=== PATIENT | male | born 1980 | race Hispanic/Latino ===

== ENCOUNTER 2020-05-29 16:45 | Emergency (ER) | payer OTHER ==
[2020-05-29 17:40] LABS: BASOPHILS % (AUTO) 0.4 % (0.0-5.0); EOSINOPHILS % (AUTO) 1.4 % (0.0-8.0); HEMATOCRIT 47.4 % (42-54); LYMPHOCYTES % (AUTO) 7.8 % (21.0-51.0); MEAN CORPUSCULAR HEMOGLOBIN 31.8 pg (27.0-33.0); MEAN CORPUSCULAR HGB CONC 36.1 g/dL (32.0-36.0); MEAN CORPUSCULAR VOLUME 88.1 fL (79-99); MONOCYTES % (AUTO) 14.9 % (3.0-13.0); NEUTROPHILS % (AUTO) 75.2 % (40.0-77.0); PLATELET COUNT (AUTO) 157 K/uL (130-400); RED BLOOD CELL COUNT(AUTO) 5.38 MIL/uL (4.50-6.20); RED CELL DISTRIBUTION WIDTH 14.4 % (11.0-15.5); WHITE BLOOD COUNT (AUTO) 10.5 K/uL (4.8-10.8)
[2020-05-29] MEDS ORDERED: MORPHINE SULFATE 2 MG/ML 1ML SYG ONE (17:40)
[2020-05-29 17:48] LABS: INR 1.29 (0.85-1.15); PARTIAL THROMBOPLASTIN TIME 28.9 SEC (26.3-35.5); PROTHROMBIN TIME 13.8 SEC (9.6-11.6)
[2020-05-29 17:50] LABS: POTASSIUM 3.5 mmol/L (3.5-5.1)
[2020-05-29 17:54] LABS: ALBUMIN 2.7 g/dL (3.5-5.0); TOTAL PROTEIN, SERUM 7.9 g/dL (6.0-8.3)
[2020-05-29] MEDS ORDERED: LEVOFLOXACIN 750 MG/D5W 150 ML 150 ML ONE (18:05)
== END 2020-05-29 19:18 | disposition home or self-care (01) ==
LOC: EDH 16:45
DX: A08.39 Other viral enteritis (principal); K65.2 Spontaneous bacterial peritonitis; I10 Essential (primary) hypertension; Z87.891 Personal history of nicotine dependence
CPT/HCPCS: 36415; 80053; 85025; 85610; 85730; 96365; 96375; 99284; J1956

== ENCOUNTER 2024-09-09 17:22 | Emergency (ER) | payer OTHER ==
[~2024-09-09] VITALS: Ht 185.4 cm; Wt 116.1 kg
--- NOTE | 2024-09-09 17:42 | ERN ---
ED Note History of Present Illness Stated Complaint: ABNORMAL LABS Chief Complaint: Abnormal Labs Time Seen by MD: 17:25 Dictation: PATIENT IS A 44-YEAR-OLD HERE WITH COMPLAINTS BEING SENT BY THE [employer] FOR LOW PLATELETS. HE STATES HE HAS HAD HEMATURIA HOWEVER NO RECTAL BLEEDING NO MELENA STOOLS NO HEMATEMESIS. ADDITIONALLY STATES HE HAD ANTERIOR CHEST PAIN THAT DOES NOT RADIATE YESTERDAY AND WAS TOO ILL TO GO TO THE HOSPITAL ON-CALL. HE STATES HE HAS BEEN TO A MONITOR TECHNICIAN IN [facility] HOWEVER CAN NOT RECALL THE NAME. Allergies: Coded Allergies: No Known Drug Intolerances (Unverified Allergy, Unknown, 09/09/24) Home Meds Active Scripts Metformin HCl (Metformin HCl) 1,000 Mg Tablet, 1000 MG PO BID, #60 TAB Prov:NELL JARA ELECTROPHYSIOLOGY NURSE PRACTITIONER 09/09/24 Reported Medications Cholecalciferol (Vitamin D3) (Vitamin D-400) 10 Mcg (400 Unit) Tablet, 1 TAB PO DAILY for 30 Days, #30 TAB 0 Refills 09/09/24 Multivitamin (Multi Vitamin Daily) 1 Each Tablet, 1 TAB PO DAILY for 30 Days, #30 TAB 0 Refills 09/09/24 Thiamine HCl (Vitamin B-1) 100 Mg Tablet, 1 TAB PO DAILY for 30 Days, #30 TAB 0 Refills 09/09/24 Folic Acid (Folic Acid) 0.4 Mg Tablet, 1 TAB PO DAILY for 30 Days, #30 TAB 0 Refills 09/09/24 Past Medical History Past Medical History: Gallstones, Liver Disease Surgical History: Other Surgical History Other: NASAL SX RN Note Reviewed/Agreed w/PFSH: Yes Review of System Dictation CONSTITUTIONAL: NEGATIVE EXCEPT FOR HPI HEAD/FACE: NEGATIVE EXCEPT FOR HPI EENT: NEGATIVE EXCEPT FOR HPI RESPIRATORY: NEGATIVE EXCEPT FOR HPI CHEST PAIN GASTROINTESTINAL/ABDOMINAL: NEGATIVE EXCEPT FOR HPI GENITOURINARY: NEGATIVE EXCEPT FOR HPI HEMATURIA MUSCULOSKELETAL: NEGATIVE EXCEPT FOR HPI INTEGUMENTARY: NEGATIVE EXCEPT FOR HPI NEUROLOGICAL/PSYCH: NEGATIVE EXCEPT FOR HPI HEMATOLOGIC/LYMPHATIC: NEGATIVE EXCEPT FOR HPI ALL SYSTEMS NEGATIVE, EXCEPT NOTED ABOVE. 13 POINT REVIEW OF SYSTEMS ASSESSED AND ALL NEGATIVE EXCEPT FOR ABOVE. Initial Vital Sign VS Vital Signs Date Time Temp Pulse Resp B/P (MAP) Pulse Ox O2 Delivery O2 Flow Rate FiO2 09/09/24 17:24 99.0 107 18 148/95 96 Room Air 0 09/09/24 17:50 21 Physical Exam Dictation VITAL SIGNS REVIEWED GENERAL APPEARANCE: ALERT, ORIENTED X 3, NO ACUTE DISTRESS, WELL DEVELOPED, NOURISHED. HEAD AND FACE: NON-TRAUMATIC. EYES: PERRL, PINK CONJUNCTIVAS, EYELID NO TRAUMA, ANTERIOR CHAMBER WITH ARCUS SENILIS. ICTERIC SCLERA EARS: PINNAS INTACT AND NO SIGNS OF TRAUMA OR ERYTHEMA EAR CANALS CLEAR AND NO DISCHARGE TM NO ERYTHEMA NOSE: NO DISCHARGE, NO BLEEDING. OROPHARYNX: MOUTH NORMAL, TONGUE PINK, PHARYNX CLEAR,NO ERYTHEMA, TONSILS NO EXUDATES, NO ABSCESSES NOTED, MUCOUS MEMBRANE MOIST NECK: SUPPLE, NON-TENDER, NO THYROMEGALY, NO MASSES, NO JVD, NO BRUITS BREAST:DEFERRED CHEST:NO TENDERNESS, NO CREPITUS, NO PARADOXICAL MOVEMENT, NO RETRACTIONS LUNGS:CLEAR, WELL-VENTILATED, SYMMETRIC, NO RALES, NO WHEEZING, NO RHONCHI, NO STRIDOR, GOOD BREATH SOUNDS BILATERALLY HEART: REGULAR RATE, REGULAR RHYTHM, NO MURMUR, NO GALLOPS VASCULAR: NO PERIPHERAL EDEMA, ABDOMEN: SOFT, POSITIVE BOWEL SOUNDS, NONDISTENDED, NO GUARDING, NONTENDER, NO REBOUND, NO MASSES NO HEPATOMEGALY, NO SPLENOMEGALY, NO MICHELLE'S SIGN, NO HERNIAS. RECTAL: DEFERRED GENITAL: DEFERRED NEUROLOGICAL: NORMAL SPEECH, MOTOR FUNCTION INTACT, SENSORY FUNCTION INTACT MUSCULOSKELETAL: NECK NONTENDER, FULL RANGE OF MOTION, BACK NONTENDER, FULL RANGE OF MOTION, EXTREMITIES: NONTENDER, FULL RANGE OF MOTION SKIN: COLOR PINK, DRY, NO TURGOR, NO RASH, NO LACERATIONS, NO ABRASIONS, NO CONTUSIONS. LYMPHATIC: DEFERRED Results (Laboratory/Radiology) Laboratory/Radiology Laboratory Tests Test 09/09/24 17:50 09/09/24 18:20 White Blood Count 2.0 K/uL (4.8-10.8) L Red Blood Count 4.69 MIL/uL (4.50-6.20) Hemoglobin 15.3 g/dL (14.0-18.0) Hematocrit 42.5 % (42-54) Mean Corpuscular Volume 90.6 fL (79-99) Mean Corpuscular Hemoglobin 32.6 pg (27.0-33.0) Mean Corpuscular Hemoglobin Concent 36.0 g/dL (32.0-36.0) Red Cell Distribution Width 13.2 % (11.0-15.5) Platelet Count 37 K/uL (130-400) L Mean Platelet Volume 11.1 fL (7.5-10.5) H Immature Granulocyte % (Auto) 0.0 % (0-1) Neutrophils (%) (Auto) 66.5 % (40.0-77.0) Lymphocytes (%) (Auto) 15.8 % (21.0-51.0) L Monocytes (%) (Auto) 12.8 % (3.0-13.0) Eosinophils (%) (Auto) 3.9 % (0.0-8.0) Basophils (%) (Auto) 1.0 % (0.0-5.0) Neutrophils # (Auto) 1.4 K/uL (1.8-7.7) L Lymphocytes # (Auto) 0.3 K/uL (1.0-4.8) L Monocytes # (Auto) 0.3 K/uL (0.1-1.0) Eosinophils # (Auto) 0.08 K/uL (0.00-0.70) Basophils # (Auto) 0.02 K/uL (0.00-0.20) Absolute Immature Granulocyte (auto 0.00 K/uL (0-1) Nucleated Red Blood Cells 0.0 % (0.0-0.19) White Cell Morphology Comment See comments Platelet Morphology Comment See comments Prothrombin Time 14.8 SEC (9.6-11.6) H Prothromb Time International Ratio 1.45 (0.85-1.15) H Activated Partial Thromboplast Time 32.2 SEC (26.3-35.5) Sodium Level 131 mmol/L (136-145) L Potassium Level 3.7 mmol/L (3.5-5.1) Chloride Level 96 mmol/L (101-111) L Carbon Dioxide Level 31 mmol/L (21-32) Blood Urea Nitrogen 8 mg/dL (7-18) Creatinine 1.0 mg/dL (0.5-1.3) Glomerular Filtration Rate Calc 96 mL/min (>90) Random Glucose 234 mg/dL (70-105) H Total Calcium 8.3 mg/dL (8.5-10.1) L Total Bilirubin 4.0 mg/dL (0.2-1.0) H Direct Bilirubin 1.4 mg/dL (0.0-0.3) H Aspartate Amino Transf (AST/SGOT) 70 U/L (10-37) H Alanine Aminotransferase (ALT/SGPT) 45 U/L (12-78) Alkaline Phosphatase 121 U/L (50-136) Troponin I High Sensitivity 5 ng/L (4-75) Total Protein 7.8 g/dL (6.0-8.3) Albumin 2.5 g/dL (3.5-5.0) L Urine Color DARK-YELLOW (YELLOW) Urine Appearance CLEAR (CLEAR) Urine pH 6.0 (5.0-8.0) Urine Specific [place] 1.027 (1.001-1.031) Urine Protein 10 mg/dL (NEGATIVE) H Urine Glucose (UA) 300 mg/dL (NEGATIVE) H Urine Ketones NEGATIVE mg/dL (NEGATIVE) Urine Occult Blood NEGATIVE (NEGATIVE) Urine Nitrate NEGATIVE (NEGATIVE) Urine Bilirubin 0.5 mg/dL (NEGATIVE) H Urine Urobilinogen 12 mg/dL (0.2-1.0) H Urine Leukocyte Esterase NEGATIVE Ana/uL Urine RBC 0-1 /HPF (0-1) Urine WBC 0-1 /HPF (0-1) Urine Squamous Epithelial Cells RARE /HPF (0-2) Urine Bacteria None /HPF (None Seen) 2054/chest x-ray clear Labs Reviewed?: Yes EKG: (+) NSR EKG Comment: EKG NORMAL SINUS RHYTHM/HEART RATE 90/AXIS NORMAL/NO ECTOPY ED Course ED Course Orders Procedure Category Date Status Time Pt And Ptt LAB 09/09/24 Complete 17:38 Cbc With Differential LAB 09/09/24 Complete 17:38 Troponin I High LAB 09/09/24 Complete Sensitivity 17:38 Urinalysis Profile LAB 09/09/24 Complete 17:38 12 Lead Ekg Tracing- EKG 09/09/24 Complete Technical 17:38 Comprehensive LAB 09/09/24 Complete Metabolic Panel 17:42 Hepatic Function Panel LAB 09/09/24 Complete 17:42 Chest 1vw RAD 09/09/24 Resulted 19:01 Vital Signs Date Time Temp Pulse Resp B/P (MAP) Pulse Ox O2 Delivery O2 Flow Rate FiO2 09/09/24 21:33 97.5 85 18 120/66 98 Room Air* 0 21 09/09/24 19:29 97.7 85 18 127/64 98 Room Air* 0 21 09/09/24 17:50 97.7 87 18 169/96 98 Room Air* 0 21 09/09/24 17:24 99.0 107 18 148/95 96 Room Air 0 2120/spoke with patient at length are route clinical findings. He is aware that he has a new onset diabetic with a blood sugar of 234 last visit to [facility] was 2019 in his blood sugar was 136. He states doctors have asked him in the passive he is diabetic however has not ever diagnosed him with diabetes. I advised patient I would send him home on metformin 500 mg b.i.d. have him see his doctor for referral to Oncology Hematology. case discussed with Dr Gallagher and agreed with my plan of care HEART Score Response (Comments) Value EKG: Normal 0 Age: < 45yrs (0) 0 Risk Factors: 1-2 risk factors (+1) 1 Initial Troponin: Normal limit (0) 0 Total 1 Medical Decision Making MDM MDM: Differential diagnosis: Electrolyte imbalance/dehydration/thrombocytopenia/ACS/AMI/pneumonia/bronchitis Rationale: Tests considered and ordered secondary to shared decision making include: EKG/labs/radiology Previous outside records reviewed: Old ER visits. Risk of complication and/or morbidity or mortality of patient management: None Medications-Per medication reconciliation Need for hospitalization: Patient does not meet criteria for hospitalization. No Need for emergency major/minor surgery: No There are no social concerns with this patient. Prescription drug management metformin Prescriptions will include symptomatic care Patient's prior external medical records from other ER visits were reviewed by me as indicated. Prior testing and results from previous visits were reviewed. Prior tests were taken into account with medical decision making and resource utilization, independent historian/historians were used to obtain complete medical history. I independently interpreted the test that were performed, results were reviewed by me and considered findings on radiology if ordered. Medical management and examination interpretation discussions were had by me with other qualified healthcare professionals as indicated for the patient's care. DX & DISP Disposition: Discharge Departure Impression: Primary Impression: Atypical chest pain Additional Impressions: Thrombocytopenia concurrent with and due to alcoholism, Hyponatremia, Alcoholic cirrhosis of liver, New onset type 2 diabetes mellitus Condition: Stable Scripts Metformin HCl (Metformin HCl) 1,000 Mg Tablet 1000 MG PO BID, #60 TAB Prov: NELL JARA ELECTROPHYSIOLOGY NURSE PRACTITIONER 09/09/24 Additional Instructions: Follow-up with primary care provider in 1 to 2 days. Take medications as directed here in the emergency room. Okay to continue home medications unless otherwise discussed during your visit in the emergency room today. Return to your nearest emergency room if symptoms worsen or if there is no improvement. Call 911 if you need immediate assistance. Take Tylenol or Motrin [id number] as needed and if no contraindications are present. Increase oral hydration. A wound culture or urine culture was ordered here in the emergency room department please follow-up with primary care provider and advise them to get repeat ports from our facility. If you had any Mick wrap/splints that were applied here, please do not remove them until you see your primary care or specialty. Take metformin as directed twice a day with food. Follow up with your primary care doctor for referral to Oncology teacher aide. Stop alcohol use. Referrals: SELF,REFERRAL (PCP) Time of Disposition: 21:26 I have reviewed the case, and I agree with, Diagnosis and Plan NELL JARA NP Sep 09, 2024 17:41
--- NOTE | 2024-09-09 17:49 | NUR ---
assumed patient care
--- NOTE | 2024-09-09 17:51 | NUR ---
obtained blood sample and sended to lab.
[2024-09-09] MEDS ORDERED: THIA100T91 PO (18:00)
[2024-09-09] MEDS ORDERED: FOLI0.4T6 PO (18:00)
[2024-09-09] MEDS ORDERED: CHOL400T33 PO (18:01)
[2024-09-09] MEDS ORDERED: MULT-1203 PO (18:01)
--- NOTE | 2024-09-09 18:01 | NUR ---
Home medication on chart. Pending to be reconsiled.
[2024-09-09 18:04] LABS: BASOPHILS # (AUTO) 0.02 K/uL (0.00-0.20); EOSINOPHILS # (AUTO) 0.08 K/uL (0.00-0.70); EOSINOPHILS % (AUTO) 3.9 % (0.0-8.0); HEMATOCRIT 42.5 % (42-54); LYMPHOCYTES # (AUTO) 0.3 K/uL (1.0-4.8); LYMPHOCYTES % (AUTO) 15.8 % (21.0-51.0); MEAN CORPUSCULAR HEMOGLOBIN 32.6 pg (27.0-33.0); MEAN CORPUSCULAR VOLUME 90.6 fL (79-99); MONOCYTES # (AUTO) 0.3 K/uL (0.1-1.0); MONOCYTES % (AUTO) 12.8 % (3.0-13.0); NEUTROPHILS # (AUTO) 1.4 K/uL (1.8-7.7); NEUTROPHILS % (AUTO) 66.5 % (40.0-77.0); PLATELET COUNT (AUTO) 37 K/uL (130-400); RED BLOOD CELL COUNT(AUTO) 4.69 MIL/uL (4.50-6.20); RED CELL DISTRIBUTION WIDTH 13.2 % (11.0-15.5)
[2024-09-09 18:12] LABS: POTASSIUM 3.7 mmol/L (3.5-5.1)
[2024-09-09 18:14] LABS: INR 1.45 (0.85-1.15); PROTHROMBIN TIME 14.8 SEC (9.6-11.6)
[2024-09-09 18:15] LABS: PARTIAL THROMBOPLASTIN TIME 32.2 SEC (26.3-35.5)
[2024-09-09 18:16] LABS: ALBUMIN 2.5 g/dL (3.5-5.0); BILIRUBIN,DIRECT 1.4 mg/dL (0.0-0.3); TOTAL PROTEIN, SERUM 7.8 g/dL (6.0-8.3)
--- NOTE | 2024-09-09 18:34 | EKG ---
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
--- NOTE | 2024-09-09 18:47 | NUR ---
TOOK OVER PATIENT AT THIS TIME
[2024-09-09 19:34] LABS: ADD UA MICROSCOPIC YES; APPEARANCE,URINE CLEAR (CLEAR); BILIRUBIN,URINE 0.5 mg/dL (NEGATIVE); COLOR,URINE DARK-YELLOW (YELLOW); GLUCOSE, URINE (UA) 300 mg/dL (NEGATIVE); KETONES,URINE NEGATIVE (NEGATIVE); LEUKOCYTE ESTERASE ,URINE NEGATIVE Leu/uL (NEGATIVE); MUCUS,URINE RARE LPF (None Seen); NITRATE,URINE NEGATIVE (NEGATIVE); OCCULT BLOOD,URINE NEGATIVE (NEGATIVE); PROTEIN,URINE 10 mg/dL (NEGATIVE); RBC,URINE 0-1 /HPF (0-1); SQUAMOUS EPITHELIAL CELL,UR RARE /HPF (0-2); UROBILINOGEN,URINE 12 mg/dL (0.2-1.0); WBC,URINE 0-1 /HPF (0-1)
--- NOTE | 2024-09-09 20:57 | HMCIMG ---
Exam Type: CHEST 1VW Clinical Information: SHORTNESS A BREATH Comparison: None Findings: The lungs are clear of infiltrates. The heart is normal in size. The bony and soft tissue structures of the chest are unremarkable. Impression: Clear lungs.
[2024-09-09] MEDS ORDERED: METF-446 PO (21:29)
[2024-09-09 21:33] VITALS: BP 120/66; PULSE 85; RESP 18; TEMP 97.6; O2SAT 98
== END 2024-09-09 21:35 | disposition home or self-care (01) ==
LOC: EDH 17:22
DX: D69.6 Thrombocytopenia, unspecified (principal); R07.89 Other chest pain; K70.30 Alcoholic cirrhosis of liver without ascites; E11.9 Type 2 diabetes mellitus without complications; E87.1 Hypo-osmolality and hyponatremia; Z79.84 Long term (current) use of oral hypoglycemic drugs; Z98.890 Other specified postprocedural states
CPT/HCPCS: 36415; 71045; 80053; 80076; 81001; 84484; 85025; 85610; 85730; 93005; 99285